=== PATIENT | female | born 1965 | race Caucasian/White ===

== ENCOUNTER 2024-07-24 09:26 | Outpatient (REF) | payer SELFPAY ==
[2024-07-24 13:25] LABS: MANUAL DIFF FLAG NO
[2024-07-24 13:39] LABS: Basophils Percent Auto 0.6 % (0-2); Eosinophils Absolute Auto 0.1 X10*3/uL (0.0-0.4); Eosinophils Percent Auto 1.5 % (0-4); Hematocrit 43.1 % (37.0-47.0); Hemoglobin 14.3 g/dl (12.0-16.0); Imm Gran Abs Auto 0.01 X10*3/uL (0.00-0.03); Imm Gran Pct Auto 0.2 % (0.0-0.4); Lymphocytes Absolute Auto 0.8 X10*3/uL (1.2-4.9); Lymphocytes Percent Auto 17.9 % (20-40); Mean Corpuscular HGB Conc 33.2 g/dl (31.0-35.0); Mean Corpuscular Hemoglobin 29.5 pg (27.0-33.0); Mean Corpuscular Volume 88.9 fL (80.0-98.0); Mean Platelet Volume 11.3 fL (9.4-12.3); Monocytes Absolute Auto 0.5 X10*3/uL (0.1-1.2); Monocytes Percent Auto 10.3 % (2-11); Neutrophils Absolute Auto 3.2 x10*3/uL (2.0-8.3); Neutrophils Percent Auto 69.5 % (45-73); Platelet Count 211 X10*3/uL (160-400); Red Blood Count 4.85 X10*6/uL (4.20-5.50); White Blood Count 4.6 X10*3/uL (4.8-10.8)
[2024-07-24 13:43] LABS: Estimated Average Glucose 111 mg/dL; Hemoglobin A1C 129.7343 umol/L; Hemoglobin A1c % 5.5 % (<6.0); Total Hemoglobin (HGBA1C) 3589.1857 umol/L
[2024-07-24 13:58] LABS: Alanine Aminotransferase 29 U/L (0-31); Albumin Level 4.3 g/dL (3.5-5.0); Alkaline Phosphatase 56 U/L (39-117); Anion Gap 15 (12-20); Aspartate Amino Transferase 34 U/L (5-31); Bilirubin Total 0.4 mg/dL (0.0-1.0); Blood Urea Nitrogen 8 mg/dL (9-16); Calcium 9.7 mg/dL (8.4-10.2); Carbon Dioxide 24 mmol/L (22-29); Chloride 103 mmol/L (96-108); Cholesterol 202 mg/dL (<200); Estimated Glomerular Filt Rate > 60; Glucose Random 93 mg/dL (60-115); HDL Cholesterol 66 mg/dL (>40); Iron 47 mcg/dL (30-160); LDL Cholesterol Calculated 122 mg/dL (<100); Percent Iron Saturation 18 % (15-50); Sodium 138 mmol/L (135-145); Total Iron Binding Capacity 267 mcg/dL (228-428); Triglycerides 74 mg/dL (<150); Unsaturated Iron Binding 220 ug/dL
[2024-07-24 14:15] LABS: Ferritin 353 ng/mL (10-250)
[2024-07-24 14:28] LABS: Vitamin B12 557 pg/mL (200-900)
== END 2024-07-24 09:27 | disposition home or self-care (01) ==
LOC: HO.MANLDS 09:26
PROVIDERS: Visit Provider Physician Assistant
DX: D64.9 Anemia, unspecified (principal); Z13.6 Encounter for screening for cardiovascular disorders; Z13.1 Encounter for screening for diabetes mellitus
CPT/HCPCS: 36415; 80053; 80061; 82607; 82728; 83036; 83540; 85025